=== PATIENT | female | born 1990 | race Hispanic/Latino ===

== ENCOUNTER 2024-06-21 00:41 | Emergency (ER) | payer SELFPAY ==
[2024-06-21 00:45] VITALS: BP 149/91
[2024-06-21 00:54] VITALS: BMI 26.2
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
[2024-06-21] MEDS: MOTRIN 600 MG PO (01:10)
== END 2024-06-21 02:00 | disposition home or self-care (01) ==
LOC: EMR 00:41
PROVIDERS: EMERGENCY PHYSICIAN Emergency Medicine
DX: S60.021A Contusion of right index finger without damage to nail, initial encounter (principal); S80.02XA Contusion of left knee, initial encounter; Y04.8XXA Assault by other bodily force, initial encounter
CPT/HCPCS: 99283; 73130; 73564